=== PATIENT | male | born 1980 | race Caucasian/White ===

== ENCOUNTER 2021-03-18 10:49 | Emergency (ER) | payer OTHER, SELFPAY ==
[2019-12-01 08:40] VITALS: BMI 37.0
[2021-03-18 10:50] VITALS: BP 164/93; PULSE 71; RESP 16; TEMP 35.5; O2SAT 97; BMI 39.3
--- NOTE | 2021-03-18 11:00 | EKG12_ITS ---
Test Reason : CP Blood Pressure : / mmHG Vent. Rate : 077 BPM Atrial Rate : 077 BPM P-R Int : 146 ms QRS Dur : 092 ms QT Int : 390 ms P-R-T Axes : 037 -03 008 degrees QTc Int : 441 ms Normal sinus rhythm Normal ECG Confirmed by TAYE HASSAN, FAISAL ([id number]), copy editor RONNI OCAMPO ([id number]) on 03/22/2021 9:49:02 AM Referred By: DODIE/HOMERO Confirmed By:FAISAL KOTHARI MD
--- NOTE | 2021-03-18 11:05 | EDS_ITS ---
HPI History of Present Illness Chief Complaint: Chest Pain Informant: patient Onset/Context/Timing Onset: Weeks Activity at onset: gradual Timing: Continuous Quality: Positive for Tightness Current Severity: Mild Maximum Severity: Mild Worsened By: Nothing Relieved By: Nothing Narrative Narrative: Patient is a 40-year-old male medical history significant for GERD the presents to the emergency department with substernal chest pain. Patient states that it began about 2 weeks ago. He states he was cutting the grass. He states shortly after, he had a bandlike pain across his upper chest. He states is been constant. It does not wax and wane. He denies nausea or vomiting. He denies any shortness of breath. He states he is otherwise been in his normal state of health. He has no history of coronary vascular disease. Prior Similar Symptoms: No Recent Illness/Hospitalization: No PFSH PFS Medical History Degenerative disc disease Home Medications ranitidine HCl 150 mg tablet 150 mg PO PRN PRN 12/01/19 [History Last Taken Unknown] Allergy/AdvReac Type Severity Reaction Status Date / Time No Known Allergies Allergy Unverified 03/18/21 10:52 Family History Other Hypertension Surgical History History of lumbar fusion Social History Smoking Status: Never smoker alcohol intake: current ROS ROS ED Constitutional Constitutional ED: Denies chills or fever(s) Eyes Eyes: Denies blurry vision or change in vision ENT ENT ED: Denies ear pain or sore throat Cardiovascular Cardiovascular: Reports chest pain; Denies palpitations Respiratory/Chest Respiratory/Chest: Denies cough, dyspnea or dyspnea on exertion Gastrointestinal Gastrointestinal: Denies abdominal pain, nausea or vomiting Genitourinary Genitourinary ED: Denies dysuria or urinary frequency Musculoskeletal Musculoskeletal: Denies arthralgias or myalgias Integumentary Denies rash Neurologic Neurologic: Denies headache(s) or paresthesias Psychiatric Psychiatric: Denies anxiety or depression Endocrine Endocrinology: Denies polydipsia or polyuria Allergic/Immunologic Allergic/Immunologic ED: Denies urticaria EXAM Physical Exam Const Vital Signs: 03/18/21 10:50 03/18/21 12:00 Temperature 95.9 F L Temperature Source Temporal Pulse Rate 71 Respiratory Rate 16 Respiratory Effort Normal Non-Labored Respiratory Pattern Normal Blood Pressure 164/93 H Blood Pressure Mean 116 Pulse Ox 97 97 Oxygen Delivery Method Room Air Room Air Positive well nourished and well developed General Appearance ED: well developed HEENT Reports normocephalic, head/scalp atraumatic and moist mucous membranes Eyes PERRL and EOMs intact bilaterally Neck no lymphadenopathy and supple General: Negative for tenderness Chest Wall inspection of chest normal Resp normal respiratory effort and clear to auscultation bilaterally Cardio regular rate, regular rhythm and no murmurs GI normal to inspection, nondistended, normoactive bowel sounds Palpation: Negative for tender, guarding or rebound tenderness present Back/Spine no CVA tenderness Cervical Spine: Negative for cervical spine tenderness Thoracic Spine / Upper Back: Negative for thoracic spinal tenderness Extremity normal to inspection General Extremety ED: Negative for tenderness Neuro oriented x3 and CN's II-XII intact bilaterally Neuro Narrative: No focal deficits appreciated. Sensorium / Orientation: alert Psych mental status grossly normal Skin no rashes or lesions noted, no wounds and skin turgor normal Heart Score History: Slightly/Non-Suspicious ECG: Normal Age: </= 45 years Risk Factors: No Risk Factors Troponin: </= Normal Limit Score: 0 MDM MDM MDM Narrative Medical decision making narrative: The patient presents with constant chest pain for 2 weeks. It is not reproducible on exam. EKG was obtained. EKG demonstrates sinus rhythm at a rate of 77. There is normal axis and intervals. There is no acute ischemia. Patient's pain has been constant. Cardiac enzymes were obtained and were negative. He is PE RC negative. Chest x-ray was obtained. Is reviewed by both myself and the radiologist. There is no focal infiltrative process, cardiomegaly, pneumothorax, or other dangerous process. Labs are unremarkable. At this point, I do not suspect a dangerous cause of his pain. His heart score is 0. I do for the patient is safe for outpatient follow-up. 1. Atypical chest pain Lab Data Attestation: I reviewed the patient's lab results. Labs: Laboratory Results - last 24 hr 03/18/21 03/18/21 11:30 11:30 WBC 6.2 RBC 5.26 Hgb 15.4 Hct 47.2 MCV 89.7 MCH 29.3 MCHC 32.6 RDW Std Deviation 43.8 RDW Coeff of Kia 13.2 Plt Count 235 MPV 10.8 Immature Gran % (Auto) 0.300 Neut % (Auto) 64.0 Lymph % (Auto) 24.8 Andrew % (Auto) 9.4 Eos % (Auto) 1.3 Baso % (Auto) 0.2 Absolute Neuts (auto) 3.9 Absolute Lymphs (auto) 1.53 Nucleated RBC % 0 Sodium 139 Potassium 4.1 Chloride 103 Carbon Dioxide 30.0 Anion Gap 6 BUN 14 Creatinine 0.92 Estim Creat Clear Calc 115.98 Est GFR (MDRD) Af Amer 116 Est GFR (MDRD) Non-Af 96 BUN/Creatinine Ratio 15.2 Glucose 99 Calcium 8.6 Troponin I < 0.015 Radiography Chest X-Ray - ED: 1 View, Read by ED Physician, Read by Radiologist, Heart, Lungs, Mediastinum, Bony Structures and No Acute Disease Diagnostic Testing: Radiology Impression Chest X-Ray 03/18/21 11:31 IMPRESSION: Normal x-ray examination of the chest. Electronically Signed: Fuentes Mcdonough MD at 12:07 EDT , Service support , Discharge Plan Triage Chief Complaint: Chest Pain ED Provider: Mukesh Richards Dx/Rx/DC Orders Instructions: ED Chest Pain, Noncardiac Prescriptions: No Action ranitidine HCl 150 mg tablet 150 mg PO PRN PRN (Reason: Heartburn) RF: 0 Primary Care Provider: Flo Tes Referrals: Flo Tse MD [Primary Care Provider] -
[2021-03-18] MEDS: Aspirin 81 MG TAB.CHEW 324 MG PO (11:25)
[2021-03-18] MEDS: 0.9% Normal Saline 1,000 ML 150 ML IV (11:31)
--- NOTE | 2021-03-18 11:31 | RAD_ITS ---
STUDY: X-RAY CHEST REASON FOR EXAM: Male, 40 years old. Chest pain TECHNIQUE: Single AP portable view of the chest. COMPARISON: None. FINDINGS: EKG electrodes are seen. The lungs are clear and expanded. There is no demonstrated pleural abnormality. Normal size heart. Normal mediastinum and wilfred. Normal visualized pulmonary arteries. Normal visualized aortic arch and descending thoracic aorta. Normal visualized thoracic spine. Normal visualized ribs, clavicles, and shoulders. There is no demonstrated abnormality of the visualized soft tissue structures of the upper abdomen. RAD/Chest 1 View (Portable) IMPRESSION: Normal x-ray examination of the chest. Electronically Signed: Fuentes Mcdonough MD at 12:07 EDT , Service support ,
[2021-03-18 11:54] LABS: Absolute Lymphocyte Count 1.53 X10^3/uL (0.83-4.51); Absolute Neutrophil Count 3.9 X10^3/uL (2.0-7.7); Basophil# 0.01 X10^3/uL; Basophil% 0.2 % (0-1); Eosinophil# 0.08 X10^3/uL; Eosinophils% 1.3 % (0-5); Hematocrit 47.2 % (40-54); Hemoglobin 15.4 g/dL (13.0-16.5); Lymphocyte # 1.53 X10^3/ul (0.83-4.51); Lymphocyte % 24.8 % (19-41); Mean Corp Hgb Conc 32.6 g/dL (32-36); Mean Corpuscular Hgb 29.3 pg (27.0-32.0); Mean Corpuscular Volume 89.7 fL (80-94); Mean Platelet Vol. 10.8 fl (6.2-12.0); Monocyte# 0.58 X10^3/uL; Monocyte% 9.4 % (0-10); NRBC Flagged by Analyzer 0 % (0-5); Neutrophil # 3.94 X10^3/uL (2.7-7.7); Platelet Count 235 K/mm3 (150-450); RBC Distribution Width CV 13.2 % (11.6-14.6); RBC Distribution Width SD 43.8 fl (35.1-43.9); Red Blood Count 5.26 M/mm3 (4.6-6.2); White Blood Count 6.2 K/mm3 (4.4-11.0)
[2021-03-18 12:00] VITALS: O2SAT 97
[2021-03-18 12:00] LABS: Anion Gap 6 (5-15); BUN 14 mg/dL (7-18); BUN/Creat Ratio 15.2 RATIO (10-20); Calcium,Total 8.6 mg/dL (8.5-10.1); Chloride 103 mmol/L (98-107); Creatinine, Serum 0.92 mg/dL (0.70-1.30); EST Glomerular Filtration Rate 96 mL/min (>60); Est Glom Filt Rate - Afr Amer 116 mL/min (>60); Estimated Creatinine Clearance 115.98 ml/min; Glucose 99 mg/dL (74-106); Potassium 4.1 mmol/L (3.5-5.1); Sodium Level 139 mmol/L (136-145)
[2021-03-18 12:44] VITALS: BP 135/69; PULSE 89; RESP 17; O2SAT 98
== END 2021-03-18 12:45 | disposition home or self-care (01) ==
PROVIDERS: Emergency Provider Emergency Medicine; PCP Family Medicine
DX: R07.89 Other chest pain (principal)
CPT/HCPCS: 71045; 80048; 84484; 85025; 93005; 99284; J7030; A4216

== ENCOUNTER 2021-08-23 05:58 | Day surgery (SDC) | payer OTHER, SELFPAY ==
--- NOTE | 2021-08-17 13:01 | EKG12_ITS ---
Test Reason : PREOP Blood Pressure : / mmHG Vent. Rate : 077 BPM Atrial Rate : 077 BPM P-R Int : 150 ms QRS Dur : 084 ms QT Int : 380 ms P-R-T Axes : 031 -04 022 degrees QTc Int : 430 ms Normal sinus rhythm Normal ECG Confirmed by TAYE HASSAN, FAISAL ([id number]), development editor RONNI OCAMPO ([id number]) on 08/18/2021 8:49:55 AM Referred By: Nikita Préez Confirmed By:FAISAL KOTHARI MD
[2021-08-17 14:51] LABS: Hematocrit 48.3 % (40-54); Hemoglobin 15.8 g/dL (13.0-16.5); Mean Corp Hgb Conc 32.7 g/dL (32-36); Mean Corpuscular Hgb 29.6 pg (27.0-32.0); Mean Corpuscular Volume 90.6 fL (80-94); Platelet Count 292 K/mm3 (150-450); RBC Distribution Width CV 13.2 % (11.6-14.6); RBC Distribution Width SD 44.5 fl (35.1-43.9); Red Blood Count 5.33 M/mm3 (4.6-6.2); White Blood Count 6.5 K/mm3 (4.4-11.0)
[2021-08-17 15:10] LABS: Anion Gap 6 (5-15); BUN 14 mg/dL (7-18); BUN/Creat Ratio 15.2 RATIO (10-20); Calcium,Total 9.3 mg/dL (8.5-10.1); Chloride 104 mmol/L (98-107); Creatinine, Serum 0.92 mg/dL (0.70-1.30); EST Glomerular Filtration Rate 95 mL/min (>60); Est Glom Filt Rate - Afr Amer 115 mL/min (>60); Glucose 86 mg/dL (74-106); Potassium 4.1 mmol/L (3.5-5.1); Sodium Level 139 mmol/L (136-145)
--- NOTE | 2021-08-23 | VAS_PTH ---
PATIENT: АНДРЕЙ PALM LOC: [facility] [place] U#:[id number] AGE/SX: 41/M ROOM: RE08/23/[address]: Dr. Nikita Pérez MD : 1980 BED: DIS: 08/23/2021 SPEC #: [id number] RECD: 08/23/21 10:43 STATUS: CHIQUIS REQ #: [id number] EVIN: 08/23/21 00:[address]: Nikita Pérez DEPT: SURGICAL PATHOLOGY RECD BY: Nile Henderson ENTERED: 08/23/21 13:31 SP TYPE: VAS OTHR DR: Dr. Flo Tse MD Tissues: A - HERNIA B - Vas deferens, NOS C - Vas deferens, NOS Procedures: Surgery Specimen Level II HEADER OPERATION: Ventral hernia repair with mesh, open PRE-OP DIAGNOSIS: Sterilization, ventral hernia TISSUE SUBMITTED: A ? Hernia sac contents, B ? Right segment vas deferens, C ? Left segment vas deferens MICROSCOPIC DIAGNOSIS A. Hernia sac contents: A piece of fibroadipose and fibroconnective tissue, consistent with hernia sac. B. Right vas deferens segment, partial vasectomy: Completely transected segment of vas deferens, no pathologic diagnosis. C. Left vas deferens segment, partial vasectomy: Completely transected segment of vas deferens, no pathologic diagnosis. SJ:bird 08/24/2021 MICROSCOPIC DESCRIPTION Slides are reviewed. GROSS DESCRIPTION A - Received in fixative is one container labeled with the patient's name and designated hernia sac contents. The specimen consists of an irregular fragment of glistening pink-yellow tissue measuring 6 x 3 x 0.8 cm. No mass lesions are identified. Training And Development Officer sections are submitted in one cassette. B - Received is one container designated right vas deferens. The specimen consists of a cylindrical segment of pink-woodward soft tissue measuring 2.5 cm in length and 0.2 cm in maximum diameter. The specimen is serially sectioned and totally submitted in one cassette. C - Received is one container designated left vas deferens. The specimen consists of a cylindrical segment of pink-woodward soft tissue measuring 2 cm in length and 0.2 cm in maximum diameter. The specimen is serially sectioned and totally submitted in one cassette. / AM:bird 08/23/21 TC:5 CPT: 87698 x3
[2021-08-23 06:35] VITALS: BP 118/80; PULSE 80; RESP 16; TEMP 36.6; O2SAT 96; BMI 40.2
--- NOTE | 2021-08-23 06:51 | PCM.HP.BLA ---
History and Physical Date of Admission: 08/23/21 Visit Reasons: VASECTOMY/ VENTRAL HERNIA Chief Complaint: cough x 3 days Allergies No Known Allergies Allergy (Unverified 07/28/21 13:10) Medications omeprazole 20 mg capsule,delayed release 20 mg PO .every other cap 07/28/21 [History Confirmed 07/28/21] [facility] Medical History Degenerative disc disease Surgical History History of lumbar fusion Family History Other Hypertension Social History Smoking Status: Never smoker alcohol intake: current HPI HPI HPI: АНДРЕЙ PALM, is a 41 M who presents to the office today for surgical consultation regarding sterilization of form of bilateral partial vasectomy as well as a suspected ventral hernia. The patient is referred by Myrtle Lloyd PA-C and Dr. Flo Tse and a written copy of my surgical consult recommendations will return to them. The patient states that he is known about a defect superior to the umbilicus for period of time. Is never been very symptomatic. He recently was employed at [employer] and was doing more heavy lifting and straining. It became more uncomfortable. Now he definitively notices the area. He thought it was a umbilical hernia. The problem is actually superior to the umbilicus. He has had no incisions in that area. He also wishes to discuss bilateral partial vasectomy as a means of sterilization. He was provided verbal and written descriptive information today. No guarantees of success have been offered. ROS General General: No weight change, appetite, fatigue, colon cancer, breast cancer or weakness HEENT HEENT: No difficulty swallowing, eye injury, eye surgery, swollen glands or hoarseness Endo Endocrine: No thyroid disease, diabetes mellitus, thyroid cancer, Hair loss, heat intolerance or cold intolerance Skin Skin: No rash or changing moles Breast Breast: No left breast lump, right breast lump, nipple discharge, breast pain, abnormal mammogram, abnormal US or breast enlargement Musc Musculoskeletal: No back problems, arthritis, rheumatoid arthritis, gout or joint pain Cardio Cardiovascular: No murmur, pacemaker, heart disease, atrial fibrillation, high blood pressure, heart attack, heart stent, palpitations, shortness of breat with exertion or chest pain Psych Psychiatric: No depression, anxiety or hearing voices Resp Respiratory: No shortness of breath, Yes sleep apnea, No cough, No COPD, No asthma, No emphysema and No wheezing Gastro Gastrointestinal: No abdominal pain, No nausea or vomiting, No diarrhea, No constipation, No blood in stool, Yes acid reflux, No hemorrhoids, No ulcers, No gallbladder problem and No black,tarry stools [place] Hematologic: No blood thinners, No blood disorders, No bleeding, No anemia and No blood clots Neuro Neurologic: No system reviewed and no additional complaints, except as documented, No as per HPI, No abnormal gait, No abnormal hearing, No abnormal movements, No abnormal speech, No behavioral changes, No burning sensations, No confusion, No convulsions, No disequilibrium, No dizziness, No localized weakness, No frequent falls, No headache(s), No lack of coordination, No loss of vision, No memory loss, No numbness, No other visual disturbances, No radicular pain, No restless legs, No sensory deficit, No syncope, No tingling, No tremor(s), No weakness and No other Exam Const General: cooperative, comfortable and no acute distress Nutritional Appearance: obese Orientation: awake and oriented x3 HENMT Head: normal to inspection Eyes General: appearance normal, both eyes and all related structures Resp Effort & Inspection: normal respiratory effort Auscultation: clear to auscultation bilaterally Cardio Rate: regular rate Rhythm: regular rhythm GI Other: Soft, large abdominal pannus, no distinct umbilical defect but superior to the umbilicus there is actually a sizable fibrofatty fullness measuring at least 6 x 5 cm in diameter. Not reducible. Mildly tender. I cannot detect any internal organs. Other: Testicles are descended bilaterally. No focal masses. No inguinal hernias or defects. Vas deferens are easily palpable Skin General: no rashes or lesions noted Neuro General: patient alert and patient awake Extrem General: no calf tenderness Psych Thought Content: normal Assessment and Plan Assessment and Plan (1) Encounter for sterilization: Status: Acute (2) Ventral hernia: Status: Acute Plan - Dr. Nikita Pérez MD: I have discussed with the patient the technique, benefit, risk, alternatives of a ventral hernia repair with mesh. I would anticipate a direct approach anticipate the fascial defect be somewhat smaller and I would be able to use a Ventralex mesh product. The patient is aware that I will be using a mesh closure to assist. He is aware of technique, benefit, risk and alternatives. He is aware there is no guarantees of success. He is aware that his body habitus does make surgical intervention more challenging. I have also discussed with him today the technique benefit risk complication alternatives of bilateral partial vasectomy. He was provided written information as well. He is aware that we consider that to be a permanent procedure. He is aware that specimen submission will be required post procedure. To me it would seem reasonable to combine these procedures as an outpatient in the operating room. We will check for precertification. I appreciate the opportunity of assisting with surgical care. Copy:Myrtle Lloyd PA-C and Dr. Flo Pérez M.D., F.A.C.S. I have re-examined the patient. There are no clinical changes since date of exam. Nikita Pérez M.D., F.A.C.S.
[2021-08-23] MEDS: Lactated Ringers 1,000 ML 100 ML IV ×2 (07:00→08:54)
--- NOTE | 2021-08-23 07:06 | EX.PCM.DISCH ---
Discharge Instructions Procedure General Surgery Diet Discharge Diet: Light diet - advance as tolerated (if you have questions about your diet instructions, please talk to you doctor.) Activity Discharge Activity: May Not Drive (for 3-5 days or while taking narcotic pain medicine.) May shower in (days): 1 Lifting Restrictions: 10 pounds Dressing / Incision Call your doctor if your incision/area has: Continuous Slow Oozing, Sudden Increased Bleeding, Increased Pain/ Swelling, Increased Redness and Foul Smelling Discharge Call your doctor if you observe: Fever of 101 or Higher Suture Line Care: Avoid Pulling/Pushing and Avoid Pinching/Bending Additional Dressing/Incision Instructions:: Change or remove dressing in 4 days. Leave steri-strips in place for 1 week. Follow Up Care Please Follow Up With: Nikita Pérez MD When: Call [phone] to make an appointment to be seen in about 10 days. Test Results: Keep gauze adjacent to your scrotal incision so that undergarments do not rub on the suture area. Frequently and liberally use ice to help limit swelling of the scrotal area. Tight fitting undergarments and elevation. Discharge Plan Admission Attending Provider: Nikita Pérez Primary Care Provider: Flo Tse Discharge Orders/Prescriptions Prescriptions: No Action omeprazole 20 mg capsule,delayed release(DR/EC) 20 mg PO .every other RF: 0 multivitamin Tablet 1 tab PO DAILY RF: 0
[2021-08-23] MEDS: Cefazolin 2 GM in 0.9% Normal Saline 100 ML IV (07:25)
[2021-08-23] MEDS: Bupivacaine Mpf 0.5% 30 ML VIAL (07:45)
--- NOTE | 2021-08-23 08:29 | PCM.OPRPT ---
Problems Associated Problem List Diagnoses (1) Encounter for sterilization: (2) Ventral hernia: Report of Operation Date of Procedure: 08/23/21 Pre-Operative Diagnosis: Incarcerated supraumbilical ventral hernia, request for sterilization Post-Operative Diagnosis: Same Surgery/Procedure Performed:: Supraumbilical ventral herniorrhaphy with [address] mesh, reference [id number], lot number [id number], expiry date 10/12/2022 Bilateral partial vasectomy Description of Surgical Findings:: Timeout informed consent was obtained. 41-year-old gentleman was taken to the operating placed on table underwent general anesthesia. Based upon body habitus Ancef 3 g were given intravenously preoperatively. Clean procedure. The abdomen and scrotal area was sterilely prepped and draped. Scrotal area treated with clipper prepping and Betadine prep prep while the abdomen was chlorhexidine. An additional Ioban drape was placed on the abdomen. A transverse supra umbilical incision was created sharp blunt dissection was identified the sizable hernia sac. It was opened and there was incarcerated omental tissue. Multiple adhesions had to be released until finally the omentum could be delivered back within the abdomen. The hernia sac was transected at the fascial level and it was submitted. The greater omentum was placed so as to overlie the small bowel. A [address] mesh was inserted and unfolded. The tails were secured with interrupted #1 Nurolon. The fascia was then approximated with interrupted #1 Nurolon's. Several sutures were used to enter the mesh to help secure it to the anterior abdominal wall. That fascia was approximated. The fascia and subcutaneous tissues were anesthetized with 0.5% Marcaine. The wound was closed with a running septic or 4-0 Monocryl. Steri-Strips Telfa OpSite dressings applied. Attention was drawn to the vasectomy. Right scrotal area identified the vas deferens made a very small incision used mosquito clamps to dissect down use of rocket clamp to identify the vas deferens elevated it and then used towel clips. Segment of the vas was dissected free. The ends were crushed with hemostats and its segment was excised and submitted his analysis the ends were secured with 3-0 chromic and then inverted and resecured. Skin edges approximated simple sutures 3-0 chromic. Same procedure was duplicated on the left. The left specimen was submitted separately for analysis. Topical antibiotic ointment was applied followed by gauze dressings. Athletic supporter was applied. Sponge and instrument and needle counts reported the surgeon to be correct. Specimens ventral hernia sac and contents. Segments of bilateral vas deferens. Drains none. Blood loss minimal. Throughout the procedure total 30 cc of 0.5% Marcaine was used to anesthetize both abdominal and scrotal locations. The patient was taken to recovery in satisfactory addition without apparent complication Nikita Pérez M.D., F.A.C.S. Surgeon: Nikita Pérez Type of Anesthesia: General Anesthesiologist: Nestor Campos
[2021-08-23 08:45] VITALS: BP 118/80; BP 121/74; PULSE 81; RESP 16; TEMP 36.4; O2SAT 97
[2021-08-23 09:00] VITALS: BP 116/70; BP 118/80; PULSE 82; RESP 16; O2SAT 96
[2021-08-23 09:15] VITALS: BP 114/73; BP 118/80; PULSE 72; RESP 16; O2SAT 95
[2021-08-23 09:30] VITALS: BP 115/80; BP 118/80; PULSE 75; RESP 14; TEMP 36.2; O2SAT 98
[2021-08-23] MEDS: HYDROcodone Bitartrate/Apap 5/325 Tablet PO (10:27)
[2021-08-23 10:45] VITALS: BP 118/80; BP 133/92; PULSE 71; RESP 18; TEMP 36.8; O2SAT 97
== END 2021-08-23 11:41 | disposition home or self-care (01) ==
LOC: SDC 05:59 → AC 05:59
PROVIDERS: PCP Family Medicine; Referring Provider Surgery; Visit Provider Surgery
PROC: (CPT 49561; principal; 2021-08-23 07:15)
PROC: (CPT 55250; 2021-08-23 07:15)
DX: Z30.2 Encounter for sterilization (principal); K43.6 Other and unspecified ventral hernia with obstruction, without gangrene; K21.9 Gastro-esophageal reflux disease without esophagitis; G47.30 Sleep apnea, unspecified
CPT/HCPCS: 00752; 49561; 49568; 55250; 36415; 80048; 85027; 88302; 93005; J7120; C1781; J2405

== ENCOUNTER → 2021-09-27 13:33 | Outpatient (CLI) | payer OTHER, SELFPAY ==
[2021-09-28 13:19] LABS: Semen Analysis Post Vas REVIEWED
== END ==
PROVIDERS: PCP Family Medicine; Referring Provider Surgery; Visit Provider Surgery
DX: Z30.2 Encounter for sterilization (principal)
CPT/HCPCS: 89321

== ENCOUNTER 2021-10-19 13:53 | Outpatient (CLI) | payer OTHER, SELFPAY ==
[2021-10-20 13:18] LABS: Semen Analysis Post Vas ABSENT
== END 2021-10-19 23:59 | disposition short-term general hospital (02) ==
LOC: LAB 13:55
PROVIDERS: PCP Family Medicine; Visit Provider Surgery
DX: Z30.2 Encounter for sterilization (principal)
CPT/HCPCS: 89321

== ENCOUNTER 2024-10-10 17:47 | Outpatient (CLI) | payer OTHER, SELFPAY ==
--- NOTE | 2024-10-10 17:54 | US_ITS ---
STUDY: SUPERFICIAL ULTRASOUND - SOFT TISSUE NECK REASON FOR EXAM: Male, 44 years old. POSTERIOR NECK CYST TECHNIQUE: A superficial ultrasound was performed with real-time and static soria-scale imaging. COMPARISON: None. FINDINGS: Multiple longitudinal and transverse ultrasound images of the right posterior aspect of the neck demonstrates a 6 mm round hypoechoic mass with increased through transmission in the superficial subcutaneous fat just subjacent to the skin likely consistent with a sebaceous cyst. US/Head/Neck Soft Tissue IMPRESSION: Ultrasound confirms a 6 mm complex cystic mass likely consistent with a sebaceous cyst. Electronically Signed: Lam Chung MD at 8:54 EST ,
== END 2024-10-10 23:59 | disposition home or self-care (01) ==
PROVIDERS: PCP Family Medicine; Referring Provider Surgery Plastic and Reconstructive Surgery; Visit Provider Surgery Plastic and Reconstructive Surgery
DX: L72.3 Sebaceous cyst (principal)

== ENCOUNTER 2024-11-20 05:56 | Day surgery (SDC) | payer OTHER, SELFPAY ==
[2024-11-20] VITALS (8 sets, daily range): BP systolic 102–139; BP diastolic 54–87; PULSE 60–81; RESP 14–18; TEMP 36.1–36.3; O2SAT 90–97; BMI 41.8
[2024-11-20] MEDS: 0.9% Normal Saline (1000mL) 1,000 ML 15 ML IV (06:28)
--- NOTE | 2024-11-20 07:02 | PRE.ANES_ITS ---
ASA Classification* ASA Classification ASA Classification: 3 Assessment & Plan Anesthesia* Anesthesia Assessment Anesthesia Assessment: Discussed sedation and/or anesthesia options, risks, benefits, and alternatives with patient/parents/legal guardian/POA. Questions invited. The patient/parents/legal guardian/POA seems to understand and agrees to proceed with anesthesia plan. Reviewed the physical assessment, medical history, allergy history and patient home medications list prior to surgery/procedure/anesthetic and documented any changes. Performed airway and anesthesia risk assessments. Anesthesia Type Anesthesia Type: General Anesthesia Focused Assessment* Temperature: 97.1 F Pulse Rate: 60 Blood Pressure: 125/87 Respiratory Rate: 17 Pulse Ox: 96 Airway Assessment Mouth opens: >3 cm Mallampati Score: II Focused Labs Anesthesia Preop lab: CBC WBC 6.5 K/mm3 (4.4-11.0) 08/17/21 13:21 08/17/21 RBC 5.33 M/mm3 (4.6-6.2) 08/17/21 13:21 08/17/21 Hgb 15.8 g/dL (13.0-16.5) 08/17/21 13:21 08/17/21 Hct 48.3 % (40-54) 08/17/21 13:21 08/17/21 Plt Count 292 K/mm3 (150-450) 08/17/21 13:21 08/17/21 CHEMISTRY Potassium 4.1 mmol/L (3.5-5.1) 08/17/21 13:21 08/17/21 Sodium 139 mmol/L (136-145) 08/17/21 13:21 08/17/21 BUN 14 mg/dL (7-18) 08/17/21 13:21 08/17/21 Creatinine 0.92 mg/dL (0.70-1.30) 08/17/21 13:21 08/17/21 Glucose 86 mg/dL (74-106) 08/17/21 13:21 08/17/21 COAG Pre-Assessment Diagnosis/Proposed Procedure Planned Operative Procedure(s): EXCISION OF CYST ON NECK Anesthesia History 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 When Was Last Pacemaker Check QUESTION #4 FULL TEXT: You/Your Family Experience fever (hyperthermia) with Anesthesia Last Oral Intake Last Oral intake: Last Oral Intake NPO since 05:30 11/20/24 06:25 Meds taken in AM with sips of Yes 11/20/24 06:25 water? 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 Female No 10/24/24 08:26 HX of Motion Sickness No 10/24/24 08:26 HX of N/V After Surgery No 10/24/24 08:26 Non-Smoker Yes 10/24/24 08:26 Duration of Surgery greater No 10/24/24 08:26 than 60 minutes Number of Risk Factors 1 10/24/24 08:26 PONV Score Low Risk 10/24/24 08:26 Height & Weight Height & Weight: Anesthesia: Height & Weight Height 6 ft 11/20/24 06:25 Weight: 140 kg 11/20/24 06:25 Body Mass Index (BMI) 41.8 11/20/24 06:25 Respiratory Assessment Respiratory Assessment - 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 Has anyone observed you stop breathing during sleep? STOP Results Positive 10/24/24 08:26 QUESTION #5 FULL TEXT : Do you snore loudly (louder than talking or can be heard through closed doors)? 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 Specify any problems Hx of Preganancy in last 3 N/A 10/24/24 08:26 Months Nurse Filling Out Transfusion VLEHMAN 10/24/24 08:26 & Questions: Date: 10/24/24 10/24/24 08:26 Time: 08:35 10/24/24 08:26 Patient unable to answer at this time (ie. 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: /Reproductive Hx- chain testing machine operator Hx Now Gestational Age (in weeks): EDC: Hx Hx Para Hx Section SAB Active Medications Active Medications: Current Medications Generic Name Dose Route Start Last Admin Trade Name Freq PRN Reason Stop Dose Admin Cefazolin Sodium 2 gm/ N/A 20 mls @ 400 mls/hr 11/20/24 07:30 IV 11/20/24 07:32 PREOP ONE Sodium Chloride 1,000 mls @ 15 mls/hr 11/20/24 06:10 11/20/24 06:28 IV 11/25/24 19:29 15 mls/hr .Q48H PARKER Administration Protocol [facility] Medical History Arthritis High cholesterol Back pain CPAP (continuous positive airway pressure) dependence High blood pressure Cataracts, both eyes Wears glasses Alcohol use Gastric reflux Non-smoker BiPAP (biphasic positive airway pressure) dependence Sleep apnea Degenerative disc disease Home Medications ?Medication ?Instructions ?Recorded ?Last Taken ?Type omeprazole 20 mg capsule,delayed 20 mg PO .every other 07/28/21 11/20/24 History release multivitamin 1 tab PO DAILY 08/17/2102/07 History metoprolol succinate 25 mg 25 mg PO QDAY 09/20/2402/07 History tablet,extended release 24 hr Allergy/AdvReac Type Severity Reaction Status Date / Time No Known Allergies Allergy Verified 11/20/24 06:24 Family History Other Hypertension Surgical History History of colonoscopy Hx of vasectomy (~08/2021) Hx of hernia repair (~08/2021) Hx of wisdom tooth extraction History of lumbar fusion Social History Smoking Status: Never smoker alcohol intake: current substance use type: does not use Review of Systems (Anesthesia) ROS Narrative System reviewed and no additional complaints, except as documented.
--- NOTE | 2024-11-20 07:30 | CYST_PTH ---
PATIENT: АНДРЕЙ PALM [place] [facility] [place][id number] AGE/SX: 44/M ROOM: RE11/20/[address]: Dr. Nikita Gross MD : 1980 BED: DIS: 11/20/2024 SPEC #: [id number] RECD: 11/20/24 09:12 STATUS: CHIQUIS HENDRICKSON #: [id number] EVIN: 11/20/24 07:[address]: Nikita Gross DEPT: SURGICAL PATHOLOGY RECD BY: Cass Aldridge ENTERED: 11/20/24 11:11 SP TYPE: Cyst OTHR DR: Dr. Flo Tse MD Tissues: CYST Procedures: Surgery Specimen Level III HEADER OPERATION: Excision cyst, neck PRE-OP DIAGNOSIS: Epidermal inclusion cyst TISSUE SUBMITTED: Neck cyst MICROSCOPIC DIAGNOSIS Neck cyst, excision: Epidermal inclusion cyst. 11/21/2024 MICROSCOPIC DESCRIPTION Slides are reviewed. GROSS DESCRIPTION Received in fixative is one container labeled with the patient's name and designated Neck cyst. The specimen consists of a piece of woodward-yellow indurated tissue measuring 2 x 1 x 1cm. The specimen is inked, serially sectioned and submitted entirely in two cassettes. 11/20/2024 TC:5 CPT:55694
--- NOTE | 2024-11-20 07:39 | PCM.HP.STD ---
HPI - General HPI Narrative АНДРЕЙ PALM, is a 44 M who presents with neck cyst. Current Encounter (DATE OF SURGERY H&P UPDATE): I saw and examined the patient this morning in pre-operative holding. We discussed risks and benefits of today's surgery and they would like to proceed. NO CHANGE in health history since last seen and evaluated. Ready to proceed with surgery. [facility] Medical History Arthritis High cholesterol Back pain CPAP (continuous positive airway pressure) dependence High blood pressure Cataracts, both eyes Wears glasses Alcohol use Gastric reflux Non-smoker BiPAP (biphasic positive airway pressure) dependence Sleep apnea Degenerative disc disease Home Medications ?Medication ?Instructions ?Recorded ?Last Taken ?Type omeprazole 20 mg capsule,delayed 20 mg PO .every other 07/28/21 11/20/24 History release multivitamin 1 tab PO DAILY 08/17/21 11/19/24 History metoprolol succinate 25 mg 25 mg PO QDAY 09/20/24 11/19/24 History tablet,extended release 24 hr Allergy/AdvReac Type Severity Reaction Status Date / Time No Known Allergies Allergy Verified 11/20/24 06:24 Family History Other Hypertension Surgical History History of colonoscopy Hx of vasectomy (~08/2021) Hx of hernia repair (~08/2021) Hx of wisdom tooth extraction History of lumbar fusion Social History Smoking Status: Never smoker alcohol intake: current substance use type: does not use Vital Signs Vital Signs Vital Signs: 11/20/24 06:25 11/20/24 06:25 11/20/24 07:03 Temperature 97.1 F L 97.1 F L Temperature Source Temporal Pulse Rate 60 60 Respiratory Rate 17 17 Respiratory Pattern Normal Blood Pressure 125/87 H 125/87 H Blood Pressure Mean 99 Blood Pressure Source Monitor Blood Pressure Position Semi-Fowlers Blood Pressure Location Left Forearm Pulse Ox 96 96 Oxygen Delivery Method Room Air Weight Weight: 308 lb 10.354 oz Body Mass Index (BMI) 41.8 Physical Exam Narrative Cyst on posterior neck, no drainage. Large with small opening at skin surface. I confirmed the site with the patient and his and marked it. Assessment & Plan Assessment/Plan (1) Epidermal inclusion cyst: PLAN: Discussed risks, benefits and alternatives to surgery and to surgery with general anesthesia. [place], I talked to him extensively about the risks of bleeding, infection, damage to surrounding structures, surgical site dehiscence and wound formation, need for wound care, need for repeat operations, failure to obtain the desired result, DVT/PE, and the risks of anesthesia including and stroke (from low blood pressure/ischemia or clot). All of their questions were answered, and they agreed to proceed with surgery. INTERVAL H&P PLAN, DATE OF SURGERY: We will proceed with surgery today. Excision neck cyst
[2024-11-20] MEDS: Cefazolin 2 GM in Syringe IV (08:05)
[2024-11-20] MEDS: Bupiv/Epi 0.25% 30 ML Vial (08:31)
[2024-11-20] MEDS: Lidocaine 1% /Epi 1:100 (20ml) 20 ML Vial (08:32)
--- NOTE | 2024-11-20 08:54 | OP.PCM_ITS ---
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 Power Checker: Saul Armstrong Tasks completed by tourist information assistant: Closing and Retracting Type of Anesthesia: General/Supplemental (with 20 cc of a 50/50 mixture of 0.25% Marcaine with 1:200,000 epinephrine and 1% lidocaine with 1:200,000 epinephrine ) RN Documented Start/Stop Times: Operation Date: 11/20/24 07:30 Case Time Into Pre-Op 11/20/24 06:06 Anesthesia Start 11/20/24 07:44 Into Room 11/20/24 07:44 Out of Pre-Op 11/20/24 07:45 Procedure Start 11/20/24 08:18 Procedure End 11/20/24 08:40 Procedure Start Time: 08:18 Procedure Stop Time: 08:40 Select all DRAINS/GRAFTS/IMPLANTS that apply: None Estimated Blood Loss: 5 cc Specimen collected: Yes Description of specimen(s) removed: Cyst from neck sent to pathology Description of surgery: INDICATIONS: Patient is a delightful 44-year-old male with a cyst on his neck. We discussed risks of infection, bleeding, damage to surrounding structures, return of the mass and need for repeat surgeries, healing problems/dehiscence of the wound and need for wound care, and risks from anesthesia. He elected to proceed with removal. OPERATIVE DETAILS: The patient was correctly identified in holding, and I marked them (the posterior neck cyst was confirmed, the patient agreed with the site marking). They were taken back to the procedure room where they were administered general anesthesia for anesthesia and placed in the prone positioning. Once appropriate level of anesthesia was obtained, the site was prepped and draped in sterile fashion. Local was injected as noted above. A 15 blade scalpel was used to make a direct incision over the mass, and dissection was carried out with tenotomy scissors around the mass/lesion and Bovie electrocautery. It was in the subcutaneous and skin layer. Dissection was carried out with tenotomy scissors around the mass and it was removed in in 1 piece hemostasis was obtained with Bovie electrocautery. The wound was irrigated with copious amounts of normal saline. It measured 2.4 x 1 centimeters. The mass was sent to pathology. Attention was then turned to intermediate closure of the wound, which was 4 centimeters long. Deep sutures were placed 2-0 PDS and 3-0 Monocryl followed by running subcuticular 3-0 Monocryl. Prineo tape was applied for the top layer. the patient tolerated the procedure well. POST-OPERATIVE PLAN: Follow-up in 1 week to discuss pathology and for wound check. O.K. to get the dressing wet in the shower 2 days. Prescribed antibiotic and as needed pain medication. Surgical Findings: Consistent with epidermal inclusion cyst Complications Complications: No Admit VTE Documentation VTE Mechan Device Prophylaxis: SCD's
--- NOTE | 2024-11-20 09:04 | PCM.POST.ANE ---
Anesthesia: Postop Eval I Current Vital Signs Temperature: 97.3 F Pulse Rate: 79 Blood Pressure: 125/54 Respiratory Rate: 18 Pulse Ox: 97 Oxygen Delivery Method: Non-Rebreather Oxygen Flow Rate (L/min): 15 Assessment Airway patent: Yes Spontaneous unlabored respirations: Yes Mental status: Awake and Calm nausea: No Vomiting: No Anesthesia Complication: No Fluid Hydration Crystalloid volume administer (ml): 800 Total IV fluid infused: 800 Progress Note Anesthesia document: Postop Eval 1 completed: Yes
--- NOTE | 2024-11-20 10:07 | PCM.POST.ANE ---
Anesthesia: Postop Eval I Current Vital Signs Temperature: 97 F Pulse Rate: 65 Blood Pressure: 128/60 Respiratory Rate: 16 Pulse Ox: 95 Assessment Airway patent: Yes Spontaneous unlabored respirations: Yes Mental status: Awake nausea: No Vomiting: No Anesthesia Complication: No Fluid Hydration Crystalloid volume administer (ml): 200 Total IV fluid infused: 200 Progress Note Anesthesia document: Postop Eval 1 completed: Yes
--- NOTE | 2024-11-20 10:08 | PCM.POSTANE2 ---
Anesthesia Postop Eval I Sum Postop Eval Completion status Anesthesia document: Postop Eval 1 completed: Yes Anesthesia Postop Eval I Summary Anesthesia Postop Eval I Summary: Anesthesia Postop Eval I: Assessment Summary Airway patent Yes 11/20/24 10:08 Spontaneous unlabored Yes 11/20/24 10:08 respirations Mental status Awake 11/20/24 10:08 nausea No 11/20/24 10:08 Vomiting No 11/20/24 10:08 Anesthesia Postop Eval I: Fluid Summary Crystalloid volume administer 200 11/20/24 10:08 (ml) Colloids volume administered ( ml) Blood Product volume administered (ml) Total IV fluid infused 200 11/20/24 10:08 Anesthesia Postop Eval I: Summary Notes Anesthesia Complication No 11/20/24 10:08 Anesthesia Complication Comment: Post-operative progress note Anesthesia: Postop Eval II Evaluation Mental status: Awake Pain Level: 0 nausea: No Vomiting: No
== END 2024-11-20 10:12 | disposition home or self-care (01) ==
LOC: SDC 05:57 → AC 05:59
PROVIDERS: PCP Family Medicine; Referring Provider Surgery Plastic and Reconstructive Surgery; Visit Provider Surgery Plastic and Reconstructive Surgery
PROC: (CPT 11423; principal; 2024-11-20 07:20)
DX: L72.0 Epidermal cyst (principal); E78.00 Pure hypercholesterolemia, unspecified; G47.30 Sleep apnea, unspecified; Z79.899 Other long term (current) drug therapy
CPT/HCPCS: 11423; 12042; 00300; 88304; J2405